=== PATIENT | female | born 1970 | race Caucasian/White ===

== ENCOUNTER 2016-06-13 18:12 | Inpatient (IN) | payer MEDICARE ==
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
[2016-06-13 21:51] LABS: Basophils # (A) 0.1 k/uL (0-0.2); Basophils % (A) 1 %; CHCM 32.6; Eosinophils # (A) 2.1 k/uL (0-0.7); Eosinophils % (A) 15 %; HCT 43.6 % (34.0-46.0); HDW 2.54; Luc # (Auto) 0.34; Luc % (Auto) 3; Lymphocytes # (A) 2.1 k/uL (1.0-4.8); Lymphocytes % (A) 16 %; MCH 31.6 pg (25.0-35.0); MCV 98.5 fL (80.0-100.0); Mean Platelet Volume 7.1; Monocytes # (A) 0.8 k/uL (0-1.0); Monocytes % (A) 6 %; Neutrophils # (A) 8.1 k/uL (1.3-7.7); Neutrophils % (A) 60 %; RBC 4.42 m/uL (3.80-5.40); RDW 12.6 % (11.5-15.5); WBC 13.4 k/uL (3.8-10.6); WBC (Perox) 13.08
[2016-06-13 22:03] LABS: ALT 30 U/L (9-52); AST 18 U/L (14-36); Alkaline Phosphatase 86 U/L (38-126); Anion Gap 9 mmol/L; Blood Urea Nitrogen 10 mg/dL (7-17); Calcium 9.8 mg/dL (8.4-10.2); Carbon Dioxide 22 mmol/L (22-30); Chloride 112 mmol/L (98-107); Glucose 104 mg/dL (74-99); Non-African American GFR(MDRD) >60 (>60 ml/min/1.73 sqM); Potassium 4.1 mmol/L (3.5-5.1); Sodium 143 mmol/L (137-145); Total Bilirubin 0.3 mg/dL (0.2-1.3); Total Protein 6.7 g/dL (6.3-8.2)
[2016-06-14] MEDS ORDERED: MAG HYDROX/AL HYDROX/SIMETH 30 ML CUP PO PRN (01:46)
[2016-06-14] MEDS ORDERED: ZIPRASIDONE 20 MG VIAL IM PRN (01:46)
[2016-06-14] MEDS ORDERED: MAGNESIUM HYDROXIDE 2,400 MG/10 ML CUP PO PRN (01:46)
[2016-06-14] MEDS ORDERED: LORazepam 2 MG/ML SYRINGE IM PRN (01:53)
[2016-06-14] MEDS: ZIPRASIDONE 60 MG CAP PO SCH ×2 (09:18→20:16)
[2016-06-14] MEDS: LITHIUM CARBONATE 300 MG CAP PO SCH ×2 (09:19→20:16)
[2016-06-14] MEDS: NICOTINE 21MG/24HR PATCH TRANSDERM SCH (09:19)
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
[2016-06-14 15:20] VITALS: BMI 19.0
[2016-06-14] MEDS: MONTELUKAST 10 MG TAB PO SCH (20:16)
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
[2016-06-15] MEDS: LITHIUM CARBONATE 300 MG CAP PO SCH ×2 (09:02→20:16)
[2016-06-15] MEDS: TOPIRAMATE 100 MG TAB PO SCH ×2 (09:03→20:16)
[2016-06-15] MEDS: ZIPRASIDONE 60 MG CAP PO SCH ×2 (09:03→20:16)
[2016-06-15] MEDS: NICOTINE 21MG/24HR PATCH TRANSDERM SCH ×2 (09:04→17:26)
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
--- NOTE | 2016-06-15 13:24 | P.PN ---
Progress Note - Text SUBJECTIVE: I reviewed the medical record, interviewed Ms. Mas and discussed her treatment and treatment plan during team meeting. She stated that she wished to return home. She denies that she currently believes that her medication, Geodon, was replaced with a "fat pill." She alleged that "someone" told her that her doctor had replaced the medication "fat pill." She also complained about her sisters. She attributes her multiple psychiatric hospitalizations to her sister's meddlesome and intrusive behavior. She denied that her behavior warranted psychiatric or mental health intervention. She denies that she feels depressed or has thoughts of or suicide. She denied psychotic symptoms such as auditory or visual hallucinations, ideas of reference, thought insertion, thought broadcasting or thought control. She complained of right hip pain and her gait was slow where she favored her left leg. OBJECTIVE: She presented as a thin pale appearing casually dressed 46-year- old female whose hair was slightly disheveled. She maintained eye contact and appeared to attend to the interview. She has a small stud on the side of her nose but no prominent physical abnormalities. She had a flat facial expression. She was alert and oriented to person, place and time. She showed psychomotor retardation and a slow but steady gait. Her speech was spontaneous with decreased rate, rhythm and volume. She had no articulation difficulties. Her affect was flat. She denied suicidal ideation or wishes. She denied homicidal ideation. She denied depressive cognitions such as hopelessness, helplessness or worthlessness. She ruminated about her sisters and their perceived intrusion into her life. She did not express ideas of reference or clear paranoid ideation. She has a fixed and well-organized belief that she does not have mental illness and her psychiatric hospitalizations result of her sisters over concern and meddlesome behavior. Her thinking was concrete but her associations were coherent and logical. She denied hallucinations and did not appear to responding to internal stimuli. She slept 6 hours last night. She has been compliant with prescribed psychotropic medications. Medicine consult appreciated. ASSESSMENT: She has a chronic mental illness and history of poor compliance with mental health treatment. She presented involuntarily. [facility] and we are awaiting the date of the involuntary commitment hearing. Has been compliant with prescribed psychotropic medication and has not displayed agitation, paranoia or behavioral dyscontrol. PLAN: Continue inpatient hospitalization until we obtain at least a deferment. Continue Geodon 60 mg by mouth twice a day and lithium 300 mg twice a day. Obtain serum lithium level in 2 days. Obtain x-ray of the right hip. An endocrinology consult placed by the customer care consultant measurement supervisor. Encourage participation in therapeutic groups and activities. Evaluate clinical status response to treatment on a daily basis.
--- NOTE | 2016-06-15 14:09 | XR ---
EXAMINATION TYPE: XR Hip Complete RT DATE OF EXAM ORDERED: 06/15/2016 1:59 PM HISTORY: right hip pain with problems walking. COMPARISON: None. FINDINGS: The right hip is minimally nonspherical. Joint spaces are maintained. There is some sclero sis on the femoral neck. There is no acute osseous lesion. IMPRESSION: PLEASE CORRELATE CLINICALLY FOR EARLY FEMOROACETABULAR IMPINGEMENT SYNDROME.
[2016-06-15] MEDS: LORazepam 1 MG TAB PO PRN (17:26)
[2016-06-15] MEDS: MONTELUKAST 10 MG TAB PO SCH (20:16)
[2016-06-15] MEDS ORDERED: QUEtiapine 100 MG TAB PO STA (20:26)
[2016-06-16 06:45] VITALS: TEMP 97.8
[2016-06-16] MEDS: ZIPRASIDONE 60 MG CAP PO SCH ×2 (09:03→20:59)
[2016-06-16] MEDS: NICOTINE 21MG/24HR PATCH TRANSDERM SCH (09:03)
[2016-06-16] MEDS: LITHIUM CARBONATE 300 MG CAP PO SCH ×2 (09:03→20:59)
[2016-06-16] MEDS: TOPIRAMATE 100 MG TAB PO SCH ×2 (09:03→20:59)
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
[2016-06-16 13:20] LABS: Amorphous Sediment,Urine Occasional /hpf; Appearance,Urine Turbid (Clear); Bilirubin,Urine Negative (Negative); Glucose,Urine (UA) Negative (Negative); Ketones,Urine Negative (Negative); Leukocyte Esterase,Urine Large (Negative); Mucus,Urine Occasional /hpf; Nitrite,Urine Negative (Negative); Particle Count 24725; Protein,Urine Negative (Negative); Specific Gravity,Urine 1.007 (1.001-1.035); Squamous Epithelial Cell,Urine 40 /hpf (0-4); UA Billing (MACRO vs. MICRO) MICRO; Urobilinogen,Urine <2.0 mg/dL (<2.0); WBC,Urine 22 /hpf (0-5)
[2016-06-16] MEDS: LORazepam 1 MG TAB PO PRN ×2 (13:53→21:39)
--- NOTE | 2016-06-16 15:55 | P.PN ---
Progress Note - Text SUBJECTIVE: I reviewed the medical record, interviewed Ms. Mas and discussed her treatment plan during team meeting. She requested discharge and "promised" that she would not stop taking her medications. We discussed her legal status. I explained that we have submitted the petition and supporting documents to probate Court for involuntary hospitalization. We cannot discharge her until she defers the court hearing or proceed with the probate hearing. She denied having thoughts of or suicide. She denied psychotic symptoms such as auditory or visual hallucinations, thought insertion, thought broadcasting or thought control. She denied having the belief that Geodon is not the psychotropic medication but a "fat pill". She complained of insomnia and requested a prescription for when necessary dosing of Seroquel. OBJECTIVE: She presented as a thin pale appearing 46-year-old female who was pleasant on approach. She maintained eye contact and attended the interview. She had a flat facial expression. She was alert and oriented to person, place and time. She had psychomotor retardation but no abnormal involuntary movements. Her speech was spontaneous with decreased rate, rhythm and volume. Affect was flat. She denied depressive cognitions such as hopelessness, helplessness or worthlessness. She did not express ideas reference or paranoid ideation. Her thinking is concrete but her associations were coherent and logical. She did not appear to be responding to internal stimuli. Orthopedic consult appreciated. She's been compliant with medications and has posed no management problem. ASSESSMENT: She appears moderately mentally ill and is very much improve from admission. We are awaiting her deferral hearing. PLAN: Continue Geodon 60 mg by mouth twice a day and 20 mg IM twice a day when necessary for acute psychosis or agitation. Continue lithium 300 mg by mouth twice a day; serum level ordered for 06/17/2016. Continue lorazepam 1 mg by mouth/IM every 8 hours when necessary for anxiety or agitation. Seroquel 100 mg at bedtime when necessary sleep. Encouraged continued participation in therapeutic groups and activities. Evaluate clinical status response to treatment daily basis. If she defers remains discharge her home after deferral hearing.
[2016-06-16] MEDS ORDERED: QUEtiapine 50 MG TAB PO PRN (15:56)
[2016-06-16] MEDS: ACETAMINOPHEN TAB 325 MG TAB PO PRN (17:35)
[2016-06-16 17:49] VITALS: RESP 16
[2016-06-16] MEDS: MONTELUKAST 10 MG TAB PO SCH (20:59)
[2016-06-16] MEDS ORDERED: QUEtiapine 50 MG TAB PO SCH (21:00)
[2016-06-17 06:43] VITALS: BP 118/61; PULSE 73
[2016-06-17] MEDS: LITHIUM CARBONATE 300 MG CAP PO SCH (09:00)
[2016-06-17] MEDS: NICOTINE 21MG/24HR PATCH TRANSDERM SCH (09:00)
[2016-06-17] MEDS: ZIPRASIDONE 60 MG CAP PO SCH (09:00)
[2016-06-17] MEDS: TOPIRAMATE 100 MG TAB PO SCH (09:01)
[2016-06-17] MEDS: LORazepam 1 MG TAB PO PRN ×2 (09:31→14:52)
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
[2016-06-17] MEDS: ACETAMINOPHEN TAB 325 MG TAB PO PRN (15:47)
== END 2016-06-17 16:38 | disposition home or self-care (01) | DRG 885 ==
LOC: EC 18:12 → 3MHU 23:12
PROVIDERS: ADMIT Psychiatry & Neurology Psychiatry; ATTEND Psychiatry & Neurology Psychiatry
DX: F25.9 Schizoaffective disorder, unspecified (principal); F23 Brief psychotic disorder; I10 Essential (primary) hypertension; E03.9 Hypothyroidism, unspecified; E78.5 Hyperlipidemia, unspecified; F17.200 Nicotine dependence, unspecified, uncomplicated; F41.9 Anxiety disorder, unspecified; F51.04 Psychophysiologic insomnia; K21.9 Gastro-esophageal reflux disease without esophagitis; M19.90 Unspecified osteoarthritis, unspecified site; M70.61 Trochanteric bursitis, right hip; M79.7 Fibromyalgia; F12.90 Cannabis use, unspecified, uncomplicated; F32.9 Major depressive disorder, single episode, unspecified; G43.909 Migraine, unspecified, not intractable, without status migrainosus; Z91.14 Patient's other noncompliance with medication regimen; Z79.899 Other long term (current) drug therapy; Z91.041 Radiographic dye allergy status; Z91.013 Allergy to seafood; Z82.49 Family history of ischemic heart disease and other diseases of the circulatory system
CPT/HCPCS: 36415; 73502; 80053; 80178; 80306; 81001; 81025; 82075; 84439; 84443; 84480; 85025; 99285